=== PATIENT | female | born 1935 | race Caucasian/White ===

== ENCOUNTER 2019-12-05 11:11 | Inpatient (IN) ==
[2019-12-05] MEDS ORDERED: ULTRAM PO PRN (12:38)
[2019-12-05] MEDS ORDERED: SODIUM CHLORIDE 0.9% INJ PRN (12:38)
[2019-12-05] MEDS ORDERED: NS 1,000 ML IV SCH (12:38)
[2019-12-05] MEDS ORDERED: PHENERGAN IV PRN (12:38)
[2019-12-05] MEDS: LOVENOX SUBQ SCH (14:43)
[2019-12-05] MEDS: ROCEPHIN 1 GM in NS 50 ML IV SCH (14:44)
[2019-12-05] MEDS: FLAGYL 250 MG/NS 250 MG/50 ML IVPB IV SCH ×2 (15:33→20:51)
[2019-12-05] MEDS: BENTYL PO SCH (16:38)
[2019-12-05] MEDS: ZYLOPRIM PO SCH (20:51)
[2019-12-05] MEDS: DESYREL PO SCH (20:51)
[2019-12-06] MEDS: FLAGYL 250 MG/NS 250 MG/50 ML IVPB IV SCH ×4 (04:22→21:32)
[2019-12-06 05:58] LABS: HEMATOCRIT 22.6 % (37.0-47.0); MCH 31.1 PG (27-31); MCV 100.4 FL (81-99); MPV 10.5 FL (7.4-10.4); RBC 2.25 XMIL (4.2-5.4); RDW 14.6 % (11.5-14.5); WBC 2.07 X1000 (4.8-10.8)
[2019-12-06] MEDS: BENTYL PO SCH ×3 (06:23→16:30)
[2019-12-06 06:35] LABS: CALCIUM 8.9 mg/dL (8.8-10.2); CREATININE 2.1 mg/dL (0.5-0.9); POTASSIUM 5.1 mmol/L (3.5-5.1)
[2019-12-06] MEDS ORDERED: TYLENOL PO ONE (06:41)
[2019-12-06] MEDS ORDERED: LASIX IV SCH (06:45)
[2019-12-06] MEDS: IMDUR PO SCH (08:34)
[2019-12-06] MEDS: FOLIC ACID PO SCH (08:34)
[2019-12-06] MEDS: COZAAR PO SCH (08:34)
[2019-12-06] MEDS: FERROUS SULFATE PO SCH (08:34)
[2019-12-06] MEDS: LEXAPRO PO SCH (08:35)
[2019-12-06] MEDS: NORVASC PO SCH (08:35)
[2019-12-06] MEDS: CULTURELLE PO SCH (08:35)
[2019-12-06] MEDS: SYNTHROID PO SCH (08:35)
--- NOTE | 2019-12-06 09:00 | PROGRESS NOTE ---
DATE: 12/06/2019 SUBJECTIVE: Ms. Reyna was admitted to [facility] with acute on chronic renal failure. On admission, her BUN and creatinine were BUN 71 and creatinine 2.8. We held her Lasix, Aldactone and cautiously gave her 1 L of fluid. Her BUN and creatinine were BUN 51 and creatinine 2.1 this morning. Her left lower quadrant abdominal pain is much improved. She no longer has had any nausea, vomiting, or diarrhea. She is tolerating a full liquid diet. She does have a history of chronic iron-deficiency anemia. Her hemoglobin and hematocrit dropped from hemoglobin 7.3 and hematocrit 24.1 to hemoglobin 7 and hematocrit 22.6. Her baseline hematocrit is around 28 or 29 given her history of cirrhosis and renal failure. She reported that some of her stools were dark yesterday. OBJECTIVE: Temperature 98 degrees, pulse 63, respirations 17, blood pressure 123/54. Cardiovascular: Regular rate and rhythm with a 2/6 systolic ejection murmur at the left sternal margin. Lungs: Clear. Abdomen: Soft, nontender with good bowel sounds. No hepatosplenomegaly. No abdominal bruits. LABORATORY DATA: Various laboratory studies were obtained. A CBC demonstrated a white count of 2.0, hemoglobin 7.0, hematocrit 22.6, and a platelet count of 72,000. A BMP demonstrated the following: Sodium 141, potassium 5.1, chloride 112, CO2 19, BUN 51, creatinine 2.1 and glucose 104. ASSESSMENT AND PLAN: 1. Acute diverticulitis. Clinically she is better. We will continue intravenous Rocephin and Flagyl and will advance her to a GI soft diet. 2. Acute on chronic renal failure. Renal function is improved with fluids. I will continue to hold the Aldactone and Lasix. 3. Pancytopenia secondary to underlying cirrhosis. She is chronically anemic. Given her underlying history of heart disease and fatigue, I will type, crossmatch, and transfuse 2 units of packed red blood cells. I will recheck a CBC in the morning. cc: Claudia Turner MD
[2019-12-06] MEDS: LOVENOX SUBQ SCH (12:11)
[2019-12-06] MEDS: ROCEPHIN 1 GM in NS 50 ML IV SCH (12:13)
[2019-12-06] MEDS ORDERED: NS 500 ML ONE (15:46)
[2019-12-06] MEDS: ZYLOPRIM PO SCH (21:32)
[2019-12-06] MEDS: DESYREL PO SCH (21:32)
[2019-12-07] MEDS: FLAGYL 250 MG/NS 250 MG/50 ML IVPB IV SCH (04:00)
[2019-12-07 04:59] VITALS: BP 128/56
[2019-12-07 06:01] LABS: HEMATOCRIT 29.6 % (37.0-47.0); HEMOGLOBIN 9.5 g/dL (12.0-16.0); MCH 30.9 PG (27-31); MCHC 32.1 g/dL (33-37); MCV 96.4 FL (81-99); MPV 11.3 FL (7.4-10.4); RBC 3.07 XMIL (4.2-5.4); RDW 15.8 % (11.5-14.5); WBC 2.5 X1000 (4.8-10.8)
[2019-12-07 06:14] LABS: CALCIUM 9.1 mg/dL (8.8-10.2); CREATININE 2.1 mg/dL (0.5-0.9); POTASSIUM 4.5 mmol/L (3.5-5.1)
[2019-12-07] MEDS: BENTYL PO SCH (06:20)
[2019-12-07] MEDS: LEXAPRO PO SCH (08:32)
[2019-12-07] MEDS: FERROUS SULFATE PO SCH (08:32)
[2019-12-07] MEDS: SYNTHROID PO SCH (08:32)
[2019-12-07] MEDS: COZAAR PO SCH (08:32)
[2019-12-07] MEDS: CULTURELLE PO SCH (08:33)
[2019-12-07] MEDS: IMDUR PO SCH (08:33)
[2019-12-07] MEDS: FOLIC ACID PO SCH (08:33)
[2019-12-07] MEDS: NORVASC PO SCH (08:33)
[2019-12-07] MEDS ORDERED: FLAGYL PO SCH (13:00)
--- NOTE | 2019-12-08 11:03 | DISCHARGE SUMMARY ---
ADMISSION DATE: 12/05/2019 DISCHARGE DATE: 12/07/2019 DISCHARGE DIAGNOSES: 1. Acute renal failure superimposed on chronic renal failure. 2. Chronic renal failure stage 3. 3. Acute diverticulitis of the intestine. 4. Acute blood loss anemia. 5. Essential hypertension. 6. 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 7. Diabetic induced gastroparesis. 8. Vascular dementia. 9. Cirrhosis. 10. History of esophageal varices with bleeding. 11. Anemia and chronic kidney disease. DISCHARGE INSTRUCTIONS: 1. The patient will return to clinic on 12/17/2019 at 1:15 p.m. to see me, Dr. Kike Turner, in anticipation of a transition of care visit. 2. Activity as tolerated. 3. 1800 calorie ADA diet. MEDICATIONS: Flagyl 250 mg q.8 hours for 5 days, folic acid 1 mg daily, trazodone 50 mg at bedtime p.r.n. insomnia, ferrous sulfate 65 mg daily, Imdur 30 mg daily, losartan 100 mg daily, amlodipine 10 mg daily, probiotic 1 p.o. b.i.d., allopurinol 300 mg at bedtime, Bentyl 10 mg t.i.d. prior to meals, spironolactone 50 mg daily, Ultram 50 mg q.6 hours p.r.n. pain, levothyroxine 50 mcg daily, Lexapro 5 mg daily. DISCHARGE PHYSICAL EXAMINATION: General: This is an elderly, frail 84-year-old lady in no apparent distress. Vital signs: Temperature 97.8 degrees, pulse 66, respirations 18, BP 128/56. CV: Regular rate and rhythm with a 2/6 systolic ejection murmur at the left sternal margin. Lungs: Clear. Abdomen: Soft, nontender, with active bowel sounds. HISTORY OF PRESENT ILLNESS: Ms. Reyna presented to the office with complaint of left lower quadrant crampy abdominal pain, nausea, vomiting, and passing dark loose stools. She does take serum iron on a daily basis. Her appetite had been poor. We started her on a full liquid diet and began intravenous antibiotics including Rocephin and Flagyl. Her nausea, vomiting, abdominal pain and diarrhea resolved, and she was transition to oral Flagyl. She will take Flagyl 250 mg t.i.d. for an additional 5 days. HOSPITAL COURSE: She was admitted to [facility] with acute on chronic renal failure. I suspect that the renal failure was due to gastric gastrointestinal losses as well as medications. Her baseline creatinine is around 1.7 to 1.8. On admission, she had a BUN and creatinine of 71 and 2.8. We held the spironolactone and the Lasix. I gave her 1 L of fluid over 10 hours. Renal function improved. At the time of discharge, her creatinine was 2.1 with a BUN of 41. We will resume a lower dosage of spironolactone 50 mg once daily, and I will continue to hold the Lasix. I will recheck a BMP prior to her next appointment. She has a history of chronic anemia secondary to chronic renal failure. Her baseline blood counts typically run in the range of 8 and 26. On admission, her blood counts were 8.4 and 24. Her blood counts dropped to 7.0 and 22.6. We suspected that she had some acute blood loss anemia secondary to diverticulitis. Because of her underlying heart disease, we typed, cross-matched and transfused 2 units of packed red blood cells. Her blood counts were stable at discharge. Her hemoglobin was 9.5, and her hematocrit was 29.6. I will recheck a hemoglobin and hematocrit prior to her next visit. Having reached maximum hospital benefit, the patient was discharged in stable condition. cc: Claudia Turner MD
== END 2019-12-07 08:42 | disposition home or self-care (01) | DRG 378 ==
LOC: DIRADM 11:11 → 1N 12:22
PROVIDERS: ADMIT Internal Medicine; ATTEND Internal Medicine